=== PATIENT | male | born 1960 | race Caucasian/White ===

== ENCOUNTER 2019-03-02 15:18 | Emergency (ER) | payer MEDICARE ==
[~2019-03-02] VITALS: Ht 162.6 cm; Wt 133.3 kg
[2019-03-02] MEDS ORDERED: ALLOPURINOL 10100 M3 (15:32)
[2019-03-02] MEDS ORDERED: ATROPINE 0.01%-10 ML OPHTHALMIC (15:33)
[2019-03-02] MEDS ORDERED: LIPITOR 40 MG T40 M1 PO (15:33)
[2019-03-02] MEDS ORDERED: ASA81BEC PO (15:33)
[2019-03-02] MEDS ORDERED: CENTRUM ADULTS1 EACH PO (15:34)
[2019-03-02] MEDS ORDERED: CALCITRIOL1 MCG/1 M5 PO (15:34)
[2019-03-02] MEDS ORDERED: ESCITALOPRA5 MG/5 ML PO (15:35)
[2019-03-02] MEDS ORDERED: VITAMIN D31 ML (15:35)
[2019-03-02] MEDS ORDERED: PLAVIX 75 MG TA75 MG PO (15:35)
[2019-03-02] MEDS ORDERED: CLEARLAX17 GM PER TUBE (15:35)
[2019-03-02] MEDS ORDERED: FAMOTIDINE 20 M20 MG PO (15:36)
[2019-03-02] MEDS ORDERED: NEURONTIN100 MG PO (15:36)
[2019-03-02] MEDS ORDERED: HUMALOG100 UNIT/1 SUBQ (15:36)
[2019-03-02] MEDS ORDERED: COMBIVENT INH (15:37)
[2019-03-02] MEDS ORDERED: NIZORAL120 ML TP (15:37)
[2019-03-02] MEDS ORDERED: LANTUS SUBQ (15:37)
[2019-03-02] MEDS ORDERED: LEVO-T50 MCG PER TUBE (15:38)
[2019-03-02] MEDS ORDERED: NORCO 10-325 T1 EAC1 PO (15:39)
[2019-03-02] MEDS ORDERED: MILK OF MA400 MG/5 M PO (15:39)
[2019-03-02] MEDS ORDERED: MECLIZINE HCL25 M1 PO (15:39)
[2019-03-02] MEDS ORDERED: METOCLOPRAM5 MG/5 M2 PO (15:39)
[2019-03-02] MEDS ORDERED: ONDANSETRON HCL4 M3 (15:40)
[2019-03-02] MEDS ORDERED: PROSOURCE NO CA30 ML PO (15:40)
[2019-03-02] MEDS ORDERED: TORSEMIDE10 MG PO (15:41)
[2019-03-02 15:59] LABS: BE -8.3 mmol/L (-2 to +3); PCO2 33.5 mmHg (35.0-45.0); pH 7.319 (7.340-7.450)
[2019-03-02 16:01] LABS: PO2 47.9 mmHg (75.0-100.0)
[2019-03-02 16:23] LABS: CREATININE 2.9 mg/dL (0.6-1.3)
[2019-03-02 16:25] LABS: POTASSIUM 2.8 mmol/L (3.5-5.1)
[2019-03-02 16:27] LABS: ALBUMIN 2.5 g/dL (3.4-5.0); MAGNESIUM 1.8 mg/dL (1.8-2.4); TOTAL BILIRUBIN 0.6 mg/dL (<0.1-1.0); TOTAL PROTEIN 7.3 g/dL (6.4-8.2)
--- NOTE | 2019-03-02 17:45 | NUR ---
LEFT MESSAGE WITH ANSWERING SERVICE FOR [facility]. NO RETURN BACK FROM NURSE. WILL CALL OTHER HOSPICE PROVIDERS
--- NOTE | 2019-03-02 17:51 | NUR ---
DR DELCID AT DISCUSSING PLAN OF CARE WITH NATALIIA CALL. NATALIIA STATES HE WOULD NO LONGER LIKE TO BE AGGRESSIVE WITH PT'S CARE AND WOULD LIKE TO DISCUSS HOSPICE OPTIONS. ATTEMPT TO CALL [facility] WITH NO ANSWER. SPOKE WITH [facility] WHO STATE THEY CAN COME TONIGHT FOR AN INFORMATIONAL VISIT.
--- NOTE | 2019-03-02 18:18 | NUR ---
NURSE FROM [facility] ARRIVED. SPEAKING WITH NATALIIA CALL AND DR DELCID. CALLED [facility] TO CANCEL VISIT NAOMI
--- NOTE | 2019-03-02 18:56 | NUR ---
NATALIIA AND [facility] AT . NATALIIA STATES HE WOULD LIKE FOR PT TO BE DISCHARGED BACK TO [facility] HOSPICE. CALLED [facility] AND SPOKE TO NURSE MEHDI WHO STATES SHE WILL CALL VICE PRESIDENT PAYMENT DON TO SEE WHAT INFORMATION NEEDS TO BE SENT FOR HOSPICE TO BE ARRANGED IN AM BUT PT IS FINE TO RETURN TONIGHT. DR DELCID AWARE
[2019-03-02 20:20] VITALS: BP 124/44
== END 2019-03-02 20:20 | disposition home or self-care (01) ==
LOC: M.ERS 15:18
PROVIDERS: Personal Emergency Response Attendant
DX: T17.890A Other foreign object in other parts of respiratory tract causing asphyxiation, initial encounter (principal); Z88.1 Allergy status to other antibiotic agents; Z88.0 Allergy status to penicillin; Z88.8 Allergy status to other drugs, medicaments and biological substances; X58.XXXA Exposure to other specified factors, initial encounter; Y93.89 Activity, other specified; Y92.89 Other specified places as the place of occurrence of the external cause; Y99.8 Other external cause status